=== PATIENT | male | born 2005 | race Caucasian/White ===

== ENCOUNTER 2025-04-12 16:08 | Emergency (ER) | payer OTHER ==
[~2025-04-12] VITALS: Ht 185.4 cm; Wt 81.8 kg
[2025-04-12] MEDS ORDERED: IBUP80TA PO (19:01)
[2025-04-12 19:05] VITALS: BP 121/71; TEMP 98.1; O2SAT 100
== END 2025-04-12 19:08 | disposition home or self-care (01) ==
LOC: M ED 16:08
DX: S93.402A Sprain of unspecified ligament of left ankle, initial encounter (principal); X50.1XXA Overexertion from prolonged static or awkward postures, initial encounter; Y92.89 Other specified places as the place of occurrence of the external cause; Y93.9 Activity, unspecified; Y99.9 Unspecified external cause status